=== PATIENT | male | born 1980 | race Caucasian/White ===

== ENCOUNTER 2023-01-21 22:45 | Outpatient (REF) | payer SELFPAY ==
[2023-01-21 22:46] VITALS: BP 132/64; PULSE 105; RESP 18; TEMP 36.8; O2SAT 98; BMI 21.2
--- NOTE | 2023-01-21 23:04 | RAD_ITS ---
INDICATION: Left rib pain EXAMINATION/TECHNIQUE: X-RAY - XR Ribs Unilateral W/ PA Chest Min 3 Views COMPARISON: None. FINDINGS: SOFT TISSUES: No soft tissue swelling or gas. BONES: No displaced fracture. No sclerotic or destructive changes observed. VISUALIZED LUNGS: Clear. No pneumothorax. RAD/Ribs Uni Min 3V w/PA Chest IMPRESSION: No evidence of displaced rib fracture. Electronically Signed: Ricardo Chung MD at 23:49 EDT ,
--- NOTE | 2023-01-21 23:04 | RAD_ITS ---
INDICATION: Left shoulder pain EXAMINATION/TECHNIQUE: X-RAY - LEFT XR Shoulder Min 2 Views 4 VIEWS COMPARISON: None. FINDINGS: SOFT TISSUES: No soft tissue swelling or gas. No radiopaque foreign body. BONES/JOINTS: No acute fracture. Joint spaces anatomically aligned. No sclerotic or destructive changes observed. RAD/Shoulder min 2 Views IMPRESSION: No acute abnormality. Electronically Signed: Ricardo Chung MD at 23:52 EDT ,
--- NOTE | 2023-01-21 23:05 | EDS_ITS ---
HPI History of Present Illness Chief Complaint: Chest Pain Narrative Narrative: 42-year-old male who denies significant past medical history, [id number], presents because he states he was admittedly running from the police when he fell into a hole and injured his left wrist, left shoulder, and left chest wall. He states the hole was deep enough where he hit his lower ribs when he fell inside. He denies hitting his head or loss of consciousness or other injury. He presents in custody of police because the pain in his joints and in his chest. PFSH PFS Medical History no medical history Home Medications NK 01/21/23 [History Last Taken Unknown] Allergy/AdvReac Type Severity Reaction Status Date / Time No Known Allergies Allergy Verified 01/21/23 22:49 Surgical History no surgical history Social History Smoking Status: Current every day smoker tobacco type: cigarettes ROS ROS ED ROS Narrative Constitutional: No fever, no chills. HEENT: No sore throat. No neck pain. No loss of vision. No rhinorrhea. Cardiovascular: Sided rib/chest pain. No palpitations. No pedal edema. Respiratory: No cough, no shortness of breath. Abdominal: No abdominal pain. No nausea. No vomiting. Genitourinary: No dysuria. No hematuria. Musculoskeletal: No myalgias. Left shoulder and left wrist pain. Neurologic: No headaches. No dizziness. No lightheadedness. Skin: No rash. No change in color. Psychiatric: No depression. No anxiety. EXAM Physical Exam Narrative Exam Narrative: Afebrile. Vital signs noted. She has 15. ABCs intact. HEENT: Normocephalic. Atraumatic. PERRL, EOMI. Neck soft and supple. No point tenderness or step off. Cardiovascular: Regular rate and rhythm. No murmurs, rubs, or gallops appreciated. Respiratory: No tachypnea. Lungs clear to auscultation bilaterally. Gastrointestinal: Abdomen soft, nontender, with normoactive bowel sounds. No rebound or guarding. Neurological: Awake. Alert. Nonfocal, nonlateralizing. Skin: No rash. Normal color. No pallor. Musculoskeletal: No pedal edema. Full range of motion extremities. No tenderness to palpation left anterior ribs without crepitance. Positive tenderness to palpation distal radius and ulna, full motion of left wrist and fingers. Able to oppose thumb. Palpable radial pulse. Diffuse tenderness to palpation left shoulder. No clinical dislocation. Const Vital Signs: 01/21/23 22:46 01/21/23 22:50 01/22/23 00:46 Temperature 98.3 F Temperature Source Temporal Pulse Rate 105 H 62 Respiratory Rate 18 16 Respiratory Effort Normal Respiratory Pattern Normal Blood Pressure 132/64 H 125/80 H Blood Pressure Mean 86 95 Pulse Ox 98 100 Oxygen Delivery Method Room Air Room Air MDM MDM MDM Narrative Medical decision making narrative: Nurse ordered EKG was obtained and interpreted by myself independently as sinus tachycardia at 101 bpm without ectopy or acute ST changes. No STEMI. I do not feel he is having cardiac chest pain, I do think it is mechanical pain in his wrist, shoulder, and chest wall. Concern would be for chest fracture, wrist fracture, or shoulder fracture. X-rays were obtained of his left upper extremity with shoulder x-rays in 2-3 views, wrist x-rays in 3 views, and left rib x-rays, and all were interpreted by myself independently. On his rib and chest x-rays, I see no evidence of an acute fracture, I interpreted his shoulder x-ray as well and there is no evidence of dislocation or fracture. I interpreted his wrist x-ray in 3 views as well and see no evidence of an acute fracture or dislocation. He was given ibuprofen 600 mg for analgesia. I reviewed the radiology reports which confirmed my independent interpretations as no evidence of pneumothorax or rib fractures, no wrist fracture, no shoulder fracture. At this point in time, I feel he can be discharged in custody of police. He will take [id number] analgesics and ice the affected areas and follow-up with a primary care provider when possible. Disposition is discharged in stable condition. Radiography Diagnostic Testing: Clinical Impression(s) from Imaging Studies Ribs w/Chest X-Ray 01/21/23 23:04 IMPRESSION: No evidence of displaced rib fracture. Electronically Signed: Ricardo Chung MD at 23:49 EDT Reading Location ID and State: [facility] / [place] Tel , Service support , Shoulder X-Ray 01/21/23 23:04 IMPRESSION: No acute abnormality. Electronically Signed: Ricardo Chung MD at 23:52 EDT , Wrist X-Ray 01/21/23 23:13 IMPRESSION: No acute fracture. Possible scapholunate dissociation best evaluated by MRI of the wrist. Electronically Signed: Ricardo Chung MD at 23:51 EDT , Discharge Plan Triage Chief Complaint: Chest Pain ED Provider: Hay Dyer Dx/Rx/DC Orders Clinical Impression: Contusion of rib on left side, Left shoulder strain, Left wrist sprain Instructions: ED Chest Wall Contusion, ED Shoulder Sprain, ED Wrist Sprain Prescriptions: No Action NK Primary Care Provider: Care Physician,No Primary Referrals: Isabella Aguirre [Non-Staff] - As soon as possible Care Physician,No Primary [Primary Care Provider] - Activity Restrictions/Additional Instructions: Use Tylenol or ibuprofen as needed for pain. You may ice the area a few times a day for 10 to 15 minutes for comfort. Disposition Disposition: Home, Self Care
--- NOTE | 2023-01-21 23:12 | EKG12_ITS ---
Test Reason : CP Blood Pressure : / mmHG Vent. Rate : 101 BPM Atrial Rate : 101 BPM P-R Int : 124 ms QRS Dur : 082 ms QT Int : 340 ms P-R-T Axes : 082 061 079 degrees QTc Int : 440 ms Sinus tachycardia Otherwise normal ECG Confirmed by HARMONY HILL, ULI ([id number]), deputy editor in chief WANDA CORONA ([id number]) on 01/26/2023 11:34:42 AM Referred By: DIONE Confirmed By:MELY ANTUNEZ MD
--- NOTE | 2023-01-21 23:13 | RAD_ITS ---
INDICATION: Left wrist pain, history of wrist fracture EXAMINATION/TECHNIQUE: X-RAY - LEFT XR Wrist Min 3 Views 3 VIEWS COMPARISON: None. FINDINGS: SOFT TISSUES: No soft tissue swelling or gas. No radiopaque foreign body. BONES/JOINTS: No acute fracture. Chronic nonunion of the ulnar styloid. Mild widening of the scapholunate interval. Remaining joint spaces anatomically aligned. No sclerotic or destructive changes observed. RAD/Wrist min 3 Views IMPRESSION: No acute fracture. Possible scapholunate dissociation best evaluated by MRI of the wrist. Electronically Signed: Ricardo Chung MD at 23:51 EDT ,
[2023-01-22 00:46] VITALS: BP 125/80; PULSE 62; RESP 16; O2SAT 100
[2023-01-22] MEDS: Ibuprofen 600 MG Tablet PO (00:58)
== END 2023-01-22 01:08 | disposition home or self-care (01) ==
LOC: ED 22:45
PROVIDERS: Visit Provider Emergency Medicine
DX: S46.912A Strain of unspecified muscle, fascia and tendon at shoulder and upper arm level, left arm, initial encounter (principal); S63.502A Unspecified sprain of left wrist, initial encounter; S20.20XA Contusion of thorax, unspecified, initial encounter; W17.2XXA Fall into hole, initial encounter; Y93.02 Activity, running
CPT/HCPCS: 71101; 73030; 73110; 93005; 99285; A4216

== ENCOUNTER 2023-01-22 14:34 | Emergency (ER) | payer MEDICAID, SELFPAY ==
[2023-01-22 14:35] VITALS: BP 117/73; PULSE 91; RESP 18; TEMP 36.3; O2SAT 98; BMI 21.5
--- NOTE | 2023-01-22 15:02 | CT_ITS ---
INDICATION: Change in Mental Status EXAMINATION: CT BRAIN - CT Head or Brain W/O Contrast Injection TECHNIQUE: Multiple axial images were obtained of the head without intravenous contrast. A radiation dose optimization technique was used for this scan. IV Contrast dosage and agent: None. RADIATION DOSAGE (If Supplied By Facility): CTDIvol = ( 44.99 ) mGy, DLP = ( 798.92 ) mGycm COMPARISON: No relevant prior comparison study available FINDINGS: BRAIN PARENCHYMA: No intra- or extra-axial hemorrhage. No evidence of acute infarct. No intracranial mass or mass effect. There is preservation of the burgos/white matter interface. Posterior fossa structures are unremarkable. CSF SPACES: Appropriate for age. No hydrocephalus. Basal cisterns are patent. CALVARIUM, SKULL BASE, PARANASAL SINUSES AND MASTOID AIR CELLS: There is partial opacification of the frontal, ethmoid and maxillary sinuses. No discrete lytic or blastic abnormalities. ORBITS: Both globes, extraocular muscles, optic nerves and retrobulbar fat appear unremarkable. ASPECTS Score for Acute Strokes: 10 CT/Brain/Head without Contrast IMPRESSION: No acute intracranial process. Partial opacification of the frontal, ethmoid and maxillary sinuses consistent with the history of sinusitis. Electronically Signed: Nathaly Navarro MD at 16:04 EDT ,
--- NOTE | 2023-01-22 15:02 | EX.ED.VIS.PS ---
HPI HPI - Psych History of Present Illness Chief Complaint: Suicidal Informant: patient and police/ship ceiler Narrative Narrative: Patient brought by police. He was in halfway last night, they have released him, and brought him here due to paranoia and seemingly not right according to police. Patient states he is from [facility], he got on a [employer] bus to get away from people there, and states that his phone was hacked after using it to get onto a website. He states his private information was taken against his will, and that seems to be what started this. He states he got off of the bus last night prior to being seen here for an injury to his left shoulder and chest, he was paranoid that someone got off the bus and was following him. He called the police on him, he was brought to the [employer]. He went across the street to the gas station, he is all the person there as well, he has several people to take him to the police station but they would not, he did not know where it was. Therefore, since nobody would take him, according to the patient, he waited until a woman got out of her car and then he jumped in and took it in order to get away from the guys. This is what led to his arrest. Patient states he takes no prescriptions for any medical problems that he knows of. He admits to having some headaches. He denies any other recent illness or injury. His left shoulder is not hurting as bad as it was yesterday. He states that his family does not want to have anything to do with him, and he does not want to live because of this and is having suicidal thoughts. He denies having a plan. [facility] Medical History Suicidal intent Home Medications NK 01/21/23 [History Last Taken Unknown] Allergy/AdvReac Type Severity Reaction Status Date / Time No Known Allergies Allergy Verified 01/22/23 14:35 Family History no significant family his Surgical History no surgical history Social History Smoking Status: Current every day smoker tobacco type: cigarettes ROS ROS ED Constitutional Constitutional ED: Denies chills or fever(s) Eyes Eyes: Denies change in vision or diplopia ENT ENT ED: Denies rhinorrhea or sore throat Cardiovascular Cardiovascular: Denies chest pain or palpitations Respiratory/Chest Respiratory/Chest: Denies cough or dyspnea Gastrointestinal Gastrointestinal: Denies abdominal pain, diarrhea, nausea or vomiting Genitourinary Genitourinary ED: Denies dysuria or hematuria Musculoskeletal Musculoskeletal: Denies back pain or neck pain Integumentary Denies abscess or rash Neurologic Neurologic: Reports headache(s); Denies paresthesias or weakness Psychiatric Psychiatric: Reports depression, suicidal ideation and suicidal thoughts; Denies homicidal ideation EXAM Physical Exam Const Vital Signs: 01/22/23 14:35 01/22/23 16:18 01/22/23 18:10 Temperature 97.4 F L Temperature Source Temporal Pulse Rate 91 56 L Respiratory Rate 18 16 14 Blood Pressure 117/73 Blood Pressure Mean 87 Pulse Ox 98 96 Oxygen Delivery Method Room Air Room Air Positive well nourished, well developed and unkempt General Appearance ED: unkempt, well developed and NAD HEENT Reports moist mucous membranes normocephalic and atraumatic Eyes PERRL and EOMs intact bilaterally General Eye ED: Negative for scleral icterus Neck no lymphadenopathy and supple Neck Narrative: No thyromegaly General: Negative for tenderness Resp normal respiratory effort and clear to auscultation bilaterally Cardio no murmurs Rate: regular rate Rhythm: regular rhythm GI non-tender and non-distended Auscultation: normoactive bowel sounds Palpation: soft Back/Spine no CVA tenderness and normal ROM Extremity normal to inspection General Extremety ED: Negative for edema General Extremity: Negative for edema Neuro oriented x3, CN's II-XII intact bilaterally, no sensory deficits noted and gait normal Sensorium / Orientation: alert Motor Exam: strength 5/5 throughout Psych cooperative, speech normal, activity/motor behavior normal and denies homicidal ideation Appearance: unkempt Attitude: calm and paranoid Activity / Motor Behavior: avoids eye contact Mood & Affect: depressed Thought Content: suicidality Skin Lesions: no lesions Rashes: no rashes MDM MDM MDM Narrative Medical decision making narrative: CT of the head was obtained in order to rule out frontal mass/edema that could simulate psychiatric disease, I reviewed the images and report which I agree with, negative for anything acute. The rest of his work-up is unremarkable except for his toxicology showing multiple substances. Certainly these could be related, regardless he will be referred to mental health for placement given his behavior. He is medically clear. He has a slightly low potassium level. This is probably due to anxiety and hyperventilation and a acute mild respiratory alkalosis. However psychiatry will not accept him without giving him some potassium anyway which is going to be done for that reason. Lab Data Attestation: I reviewed the patient's lab results. Labs: Laboratory Results - last 24 hr 01/22/23 01/22/23 15:11 15:48 WBC 6.7 RBC 4.24 L Hgb 12.9 L Hct 39.3 L MCV 92.7 MCH 30.4 MCHC 32.8 RDW Std Deviation 49.1 H RDW Coeff of [place] 14.5 Plt Count 333 MPV 8.9 Immature Gran % (Auto) 0.300 Neut % (Auto) 63.7 Lymph % (Auto) 26.4 Hand % (Auto) 7.1 Eos % (Auto) 2.2 Baso % (Auto) 0.3 Absolute Neuts (auto) 4.3 Absolute Lymphs (auto) 1.78 Nucleated RBC % 0 Sodium 142 Potassium 3.3 L Chloride 109 H Carbon Dioxide 31.0 Anion Gap 2 L BUN 19 H Creatinine 0.80 Estim Creat Clear Calc 107.28 Est GFR (MDRD) Af Amer 134 Est GFR (MDRD) Non-Af 111 BUN/Creatinine Ratio 23.6 H Glucose 146 H Calcium 8.9 Total Bilirubin 0.20 AST 34 ALT 29 Alkaline Phosphatase 69 Total Protein 6.3 L Albumin 3.4 Globulin 2.9 Albumin/Globulin Ratio 1.2 TSH 0.38 Urine Opiates Screen NEGATIVE Urine Methadone Screen NEGATIVE Ur Barbiturates Screen NEGATIVE Ur Phencyclidine Scrn NEGATIVE Ur Amphetamines Screen POSITIVE H MDMA (Ecstasy) Screen POSITIVE H U Benzodiazepines Scrn NEGATIVE Urine Cocaine Screen POSITIVE H U Cannabinoids Screen NEGATIVE Ur Drug Screen Comment Ethyl Alcohol < 3.0 Radiography Diagnostic Testing: Clinical Impression(s) from Imaging Studies Brain CT 01/22/23 15:02 IMPRESSION: No acute intracranial process. Partial opacification of the frontal, ethmoid and maxillary sinuses consistent with the history of sinusitis. Electronically Signed: Nathaly Navarro MD at 16:04 EDT , Discharge Plan Triage Chief Complaint: Suicidal ED Provider: Uli Alfaro Dx/Rx/DC Orders Clinical Impression: Suicidal thoughts, Polysubstance abuse, Acute psychogenic paranoid psychosis Prescriptions: No Action NK Primary Care Provider: Care Physician,No Primary Referrals: Care Physician,No Primary [Primary Care Provider] - Disposition Disposition: Psychiatric Hospital or Unit
[2023-01-22 15:36] LABS: Absolute Lymphocyte Count 1.78 X10^3/uL (0.83-4.51); Absolute Neutrophil Count 4.3 X10^3/uL (2.0-7.7); Basophil# 0.02 X10^3/uL; Basophil% 0.3 % (0-1); Eosinophil# 0.15 X10^3/uL; Eosinophils% 2.2 % (0-5); Hematocrit 39.3 % (40-54); Hemoglobin 12.9 g/dL (13.0-16.5); Lymphocyte # 1.78 X10^3/ul (0.83-4.51); Lymphocyte % 26.4 % (19-41); Mean Corp Hgb Conc 32.8 g/dL (32-36); Mean Corpuscular Hgb 30.4 pg (27.0-32.0); Mean Corpuscular Volume 92.7 fL (80-94); Mean Platelet Vol. 8.9 fl (6.2-12.0); Monocyte# 0.48 X10^3/uL; Monocyte% 7.1 % (0-10); NRBC Flagged by Analyzer 0 % (0-5); Neutrophil # 4.29 X10^3/uL (2.7-7.7); Neutrophil % 63.7 % (47-70); Platelet Count 333 K/mm3 (150-450); RBC Distribution Width CV 14.5 % (11.6-14.6); RBC Distribution Width SD 49.1 fl (35.1-43.9); Red Blood Count 4.24 M/mm3 (4.6-6.2); White Blood Count 6.7 K/mm3 (4.4-11.0)
[2023-01-22 15:47] LABS: Alcohol, Blood (Medical)-Serum < 3.0 mg/dL
[2023-01-22 16:00] LABS: ALB/GLOB Ratio 1.2 RATIO (0.9-2.4); AST(SGOT) 34 U/L (15-37); Alanine Aminotransfer ALT/SGPT 29 U/L (16-61); Albumin, Serum 3.4 g/dL (3.2-5.0); Alkaline Phosphatase 69 U/L (45-117); Anion Gap 2 (5-15); BUN 19 mg/dL (7-18); BUN/Creat Ratio 23.6 RATIO (10-20); Calcium,Total 8.9 mg/dL (8.5-10.1); Chloride 109 mmol/L (98-107); EST Glomerular Filtration Rate 111 mL/min (>60); Est Glom Filt Rate - Afr Amer 134 mL/min (>60); Estimated Creatinine Clearance 107.28 ml/min; Globulin 2.9 g/dL (2.2-4.2); Glucose 146 mg/dL (74-106); Potassium 3.3 mmol/L (3.5-5.1); Protein, Total 6.3 g/dL (6.4-8.2); Sodium Level 142 mmol/L (136-145); Thyroid Stim Hormone (TSH) 0.38 uIU/mL (0.358-3.74)
[2023-01-22 16:13] LABS: Amphetamine Urine VISTA POSITIVE (<1000 ng/mL); Barbiturate Urine VISTA NEGATIVE (< 200 ng/mL); Benzodiazepine Urine VISTA NEGATIVE (< 200 ng/mL); Cocaine Urine VISTA POSITIVE (< 300 ng/mL); Ecstacy Urine VISTA POSITIVE (< 500 ng/mL); Methadone Urine VISTA NEGATIVE (< 300 ng/mL); PCP Urine VISTA NEGATIVE (< 25 ng/mL); THC Urine VISTA NEGATIVE (< 50 ng/mL); Vista UDS pH Range 6
[2023-01-22 16:18] VITALS: RESP 16
--- NOTE | 2023-01-22 17:29 | CM.ED ---
Social Work Psychiatric Assessment Reason for consult: SI Informant(s): Patient, medical record Chief Complaint: SI with plan, paranoia Marital/Social History/Living Situation: Patient is a 42-year-old single male. Pt reports he is from [place] originally and moved to [place] in 2004. Pt reports he lives independently in [place] but prior to that he was in senior care. Pt reports he has no family or friends. History: None Education and Employment History: GED, unemployed Mental Health Treatment/History: Patient reports he went to counseling once, when he was young. Pt denies any current mental health services, diagnoses, or medications. Pt reports no prior psychiatric hospitalizations. Pt does report schizophrenia is ?in my family.? Substance Abuse Hx: Pt reports alcohol, cocaine, meth, and marijuana use. Pt is unsure when he last used but is positive for amphetamines, mdma, and cocaine. Abuse Issues/Trauma HX: Pt reports his father was an alcoholic. Pt denied any specific abuse. Risk to Self/Others: Pt reports SI with plan and intent, planning to either hang or shoot himself. Pt reports a prior attempt to hang self and overdose attempt but reports no psych placement. Pt reports HI to the ?hackers? which present as being related to patient?s paranoia of his phone and email being hacked. Triggers/Stressors/Risk factors: Pt denies any support system, released from group home or senior care in October, substance abuse with paranoia Coping Skills: None Support/Resources: None Mental Status Exam: Pt is oriented x4 with fair memory. Appearance/General Behavior/Mood/Affect: Pt presents as disheveled. Pt is calm and cooperative. Pt reports he has been depressed, stressed, and anxious. Pt has flat affect. Communication Pattern/Thought process: Pt is able to communicate effectively but does present with AVH, paranoia and delusions. General Intellectual Functioning:?? Below average, reports ?LD? classes in school Judgment/Insight: Pt presents with poor judgment and insight Assessment: ? Patient presents in the ED after being discharged from the group home and balloon pilot brought patient for evaluation due to suicidal concerns. Pt had an incident in the night in which he reports he got off of the bus in [place] because he was being chased by people trying to kill him. Pt then take to the [employer] but was unable to stay. Pt reports then he was at a gas station and no one would take him to see the balloon pilot. Pt reports he saw a running car and jumped in it and took off. This resulted in a police kishan with patient being taken to group home. At group home discharge, group home counselor was concerned about mental health and had patient brought to the ED. Pt presents as paranoid and delusional. Pt reports someone hacked his phone and sent hacked emails with his face that then hacked the people it was sent to and now people are chasing him to kill him because of being hacked. Pt reports hearing voices but no specific words and seeing shadow figures. Pt reports he is suicidal and has a plan to hang or shoot himself. Pt reports 2 prior attempts but denies prior psych placements. Pt denies having any mental health conditions or taking medications. Pt does admit to alcohol, cocaine, and meth use but could not recall last use. Pt reports he cannot remember the last time he slept because he is ?on the run.? Pt denies any supportive friends and family and reports ?they want nothing to do with me.? Pt declined to have SW call anyone. Upon assessment, pt would benefit from inpatient dual diagnosis psychiatric placement due to SI with plan/intent, AVH, paranoia, and delusions. JUICE collaborated with Dr. Alfaro who is in agreement with psychiatric placement, Plan:. Pt to be referred for psychiatric hospitalization. Felicita Mojica [employer] SHOE LABORER, MACHINE ADJUSTER LEADER
--- NOTE | 2023-01-22 17:41 | CM.ED ---
Addendum entered by Felicita Mojica 01/22/23 18:16: SW received accepting information from [facility]. Pt is going to the [facility] unit accepted by Dr. Mac Chen. Lester slip requested made to their facility. SW faxed pink slip and secretary to board of commissioners scheduled transport. Felicita CHAPIN, LUCILA Original Note: Social Work SW referred patient to [facility] and [facility] for dual diagnosis hospitalization. Pt referred to [place] facilities due to patient living in [place]. Referrals pending review. Felicita CHAPIN, LUCILA
[2023-01-22] MEDS: Potassium Chloride Oral Tablet 20 MEQ 40 MEQ PO (18:09)
[2023-01-22 18:10] VITALS: PULSE 56; RESP 14; O2SAT 96
[2023-01-22 21:27] VITALS: BP 109/72; PULSE 88; RESP 16; TEMP 37.1; O2SAT 97
[2023-01-22 21:28] VITALS: BP 109/72; PULSE 88; RESP 16; TEMP 37.1; O2SAT 97
--- NOTE | 2023-01-23 00:09 | ED.RN ---
Attempted to call report to [facility] at [phone], call line for intake was not available, leave your number and your call will be received and not lost. This nurse left [facility] [phone] for call back.
== END 2023-01-23 01:17 ==
PROVIDERS: Emergency Provider Emergency Medicine; Visit Provider Emergency Medicine
DX: R45.851 Suicidal ideations (principal); F23 Brief psychotic disorder; F19.19 Other psychoactive substance abuse with unspecified psychoactive substance-induced disorder; F17.210 Nicotine dependence, cigarettes, uncomplicated
CPT/HCPCS: 70450; 80053; 80307; 82077; 84443; 85025; 87811; 99284